=== PATIENT | female | born 1985 | race Caucasian/White ===

== ENCOUNTER 2025-06-03 19:56 | Emergency (ER) | payer MEDICAID, SELFPAY ==
[2025-06-03 20:05] VITALS: BP 115/75; PULSE 78; RESP 18; TEMP 36.6; O2SAT 100; BMI 29.9
--- NOTE | 2025-06-03 20:20 | ECG_ITS ---
[facility] Test Date: 2025-06-03 Pat Name: Katie Lin Department: Room: Gender: Female [employer] Assistant: : [id number] Requested By: Leona Cabrales Order Number: [id number] Gucci MD: JESSICA MILLAN Measurements Intervals [place] Rate: 83 P: 70 [place]: 143 QRS: 55 QRSD: 94 T: 48 QT: 358 QTc: 422 Interpretive Statements SINUS RHYTHM POSSIBLE LEFT ATRIAL ENLARGEMENT [-0.1mV P-WAVE IN V1/V2] INDETERMINATE AXIS POSSIBLE RIGHT VENTRICULAR CONDUCTION DELAY [RSR (QR) IN V1/V2] No previous ECG available for comparison Electronically Signed On 06-04-2025 18:30:52 PLANNING MANAGER by JESSICA MILLAN [email or web address]
--- NOTE | 2025-06-03 20:20 | XRR_ITS ---
PROCEDURE INFORMATION: Exam: XR Chest Exam date and time: 06/03/2025 8:37 PM Age: 40 years old Clinical indication: Pain; Chest pressure; Additional info: Chest pain TECHNIQUE: Imaging protocol: Radiologic exam of the chest. Views: 1 view. COMPARISON: No relevant prior studies available. FINDINGS: Lungs: Unremarkable. No consolidation. Pleural spaces: Unremarkable. No pleural effusion. No pneumothorax. Heart/Mediastinum: Unremarkable. No cardiomegaly. Bones/joints: Unremarkable. XR/XR chest 1V portable [id number] IMPRESSION: No acute findings.
[2025-06-03 20:45] LABS: Hematocrit 36.2 % (36-47); Hemoglobin 11.70 g/dL (11.27-16.99); Mean Corpuscular HGB Conc 32.3 g/dL (30-55); Mean Corpuscular Hemoglobin 28.3 pg (27-33); Mean Corpuscular Volume 87.4 fl (85-98); Nucleated Red Blood Cells % 0 %; Platelet Count 197 10^3/cmm (157-399); Red Blood Count 4.14 10^6/uL (3.85-5.65); White Blood Count 8.42 10^3/uL (3.29-11.43)
[2025-06-03 21:01] LABS: Troponin(5th) Baseline 7 ng/L (0-10)
[2025-06-03 21:03] LABS: Alanine Aminotransferase 6 U/L (0-33); Albumin Level 4.5 g/dL (3.5-5.2); Alkaline Phosphatase 85 U/L (35-105); Anion Gap 14.3 (5-19); Aspartate Amino Transferase 11 U/L (0-32); Blood Urea Nitrogen 10 mg/dL (6-20); Calcium 9.5 mg/dL (8.5-10.5); Carbon Dioxide 27 mmol/L (22-29); Chloride 103 mmol/L (98-107); Creatinine Clr Calc Pharmacy 110.5027; Globulin 2.4 g/dL (1.3-4.6); Glucose 84 mg/dL (65-115); Osmolality Calculated 288 mOsm/kg (285-295); Potassium 4.3 mmol/L (3.5-5.1); Sodium 140 mmol/L (136-145); Total Protein 6.9 g/dL (6.6-8.7)
--- NOTE | 2025-06-03 21:06 | ED_ITS ---
HPI - Chest Pain 2 General: Chief Complaint: Chest Pain Stated Complaint: Chest pain,headache,dizzy Time Seen by Provider: 06/03/25 20:26 History of Present Illness: Patient is a 40-year-old female with a past medical history of atrial fibrillation status post ablation currently not on medications presents with a chief complaint of chest pressure, shortness of breath, dizziness. Patient states she was also simultaneously experiencing ache in her left shoulder but no radiation of pain. She states that when she stood, she felt more dizzy, unclear if symptoms were exertional. She states her symptoms started at rest and were associated with increased stress. Patient states that she is in the middle of buying a home and felt very overwhelmed and stressed out. Her symptoms have now resolved and she only has mild 1 out of 10 pain that is occasional, sharp and stabbing in the left chest. Patient has not had a fever, upper respiratory symptoms, cough, hemoptysis, current shortness of breath, syncope, abdominal pain, nausea, vomiting, lower extremity swelling or edema. Patient does not have a history of CAD, DVT, PE, diabetes, high cholesterol, high blood pressure and is not a smoker and does not use marijuana. She does not have a significant medical history. Patient was concerned and anxious that she was experiencing a heart attack. Patient does not take oral contraceptives and has had a tubal ligation, last menstrual cycle 1 week ago. Of note, she's been experiencing urinary urgency and frequency for the past few days. Related Data Previous Rx's ?Medication ?Instructions ?Recorded nitrofurantoin 100 mg PO BID 5 days #10 cap s 06/03/25 monohydrate/macrocrystals 100 mg capsule (Macrobid) Allergies Allergy/AdvReac Type Severity Reaction Status Date / Time No Known Allergies Allergy Verified 06/03/25 20:09 Physical Exam 2 Narrative: EXAM NARRATIVE: Vital signs were reviewed. Patient is alert and oriented. Patient is breathing comfortably, no increased WOB or accessory muscle use. SpO2 is above 95% on RA. Patient has clear lungs b/l, no rhonchi, wheezing or crackles. No hypotension or tachycardia. Abdomen is soft, nondistended and nontender. Patient is moving all extremities, no deformity or gross injury. No lower extremity edema or asymmetry. Course 2 Vital Signs: Vital signs: Vital Signs Temperature 97.9 F 06/03/25 20:05 Pulse Rate 78 12/11/25 20:05 Respiratory Rate 18 06/03/25 20:05 Blood Pressure 115/75 06/03/25 20:05 Pulse Oximetry 100 06/03/25 20:05 Oxygen Delivery Me thod Room Air 06/03/25 20:05 MDM - Chest Pain Medical Decision Making 40-year-old female without significant medical history presents with a chief complaint of chest pressure, shortness of breath, dizziness in the setting of feeling anxious, overwhelmed and stressed. Differential diagnosis includes, but is not limited to, ACS, myocarditis, pericarditis, pneumonia, viral upper respiratory infection, PE, GERD, other. On initial exam, patient is hemodynamically stable nontoxic appearing. EKG was personally reviewed and interpreted and shows normal sinus rhythm with a heart rate of 83, normal axis, normal intervals, no STEMI. Patient was evaluated CBC, CMP, troponin, D-dimer and UA. Patient has a normal white blood cell count and is not anemic. She does not have any actionable electrolyte abnormalities. She has a normal troponin and a delta and a normal D-dimer. Chest x-ray does not show acute pathology. Patient has a HEART score of 0 and at this time is chest pain-free. Patient does have a urinary tract infection which was treated with Macrobid. Given that she reports palpitations, recommended she see a flotation tender on an outpatient basis and recommended evaluation with continuous nurse monitoring. At this time she is stable for discharge. Patient was counseled on supportive care at home, given return precautions and discharged in stable condition with recommendation for outpatient follow-up with primary care nurse or doctor. Lab Data 06/03/25 20:29 06/03/25 20:29 Radiology Impressions Chest X-Ray 06/03/25 20:20 IMPRESSION: No acute findings. Laboratory Results WBC 8.42 10^3/uL (3.29-11.43) 06/03/25 20: RBC 4.14 10^6/uL (3.85-5.65) 06/03/25 20: Hgb 11.70 g/dL (11.27-16.99) 06/03/25 20: Hct 36.2 % (36-47) 06/03/25 20: MCV 87.4 fl (85-98) 06/03/25 20: MCH 28.3 pg (27-33) 06/03/25 20: MCHC 32.3 g/dL (30-55) 06/03/25 20: RDW 12.6 % (12.1-15.1) 06/03/25 20: Plt Count 197 10^3/cmm (157-399) 06/03/25 20: MPV 9.3 fL (7.4-10.4) 06/03/25 20: Neut % (Auto) 72.4 % 06/03/25 20: Lymph % (Auto) 17.6 % 06/03/25: [place] % (Auto) 8.4 % 06/03/25: Eos % (Auto) 0.7 % 06/03/25: Baso % (Auto) 0.5 % 06/03/25 Neut # (Auto) 6.10 10^3/uL (1.8-7.7) 06/03/25: Lymph # (Auto) 1.5 10^3/uL (0.8-4.8) 06/03/25 20: [place] # (Auto) 0.7 10^3/uL (0.2-0.9) 06/03/25: Eos # (Auto) 0.1 10^3/uL (0.0-0.8) 06/03/25: Baso # (Auto) 0.0 10^3/uL (0.0-0.1) 06/03/25: Nucleated RBC % (auto) 0 % 06/03/25: Nucleated RBCs # 0.0 /100WBC 06/03/25 20: D-Dimer 0.39 ug/mLFEU (0-0.59) 06/03/25 20: Sodium 140 mmol/L (136-145) 06/03/25 20: Potassium 4.3 mmol/L (3.5-5.1) 06/03/25 20: Chloride 103 mmol/L (98-107) 06/03/25 20: Carbon Dioxide 27 mmol/L (22-29) 06/03/25 20: Anion Gap 14.3 (5-19) 12/11/25 20:29 BUN 10 mg/dL (6-20) 06/03/25 20:29 Creatinine 0.7 mg/dL (0.5-0.9) 06/03/25 20: GFR Calculation 91.8 mL/min (90-130) 06/03/25 20:29 Glucose 84 mg/dL (65-115) 06/03/25 20:29 Calculated Osmolality 288 mOsm/kg (285-295) 06/03/25 20:29 Calcium 9.5 mg/dL (8.5-10.5) 06/03/25 20:29 Total Bilirubin 0.7 mg/dL (0.15-1.2) 06/03/25 20:29 AST 11 U/L (0-32) 06/03/25 20: ALT 6 U/L (0-33) 06/03/25 20:29 Alkaline Phosphatase 85 U/L (35-105) 06/03/25 20: Troponin T Baseline 7 ng/L (0-10) 06/03/25 20:29 Total Protein 6.9 g/dL (6.6-8.7) 06/03/25 20:29 Albumin 4.5 g/dL (3.5-5.2) 06/03/25 20: Globulin 2.4 g/dL (1.3-4.6) 06/03/25 20:29 All radiology interpretation(s) finalized by discharge EKG Data EKG 1: Interpretation: EKG shows sinus rhythm with a heart rate of 83, normal axis, normal intervals, no ST segment elevation. No ischemic change. Discharge Plan Discharge Patient Disposition: Home Clinical Impression: Chest pain, non-cardiac, Heart palpitations Urinary tract infection Qualifiers: Urinary tract infection type: acute cystitis Hematuria presence: with hematuria Qualified Code(s): N30.01 - Acute cystitis with hematuria Condition: Stable Prescriptions: New nitrofurantoin monohyd/m-cryst [Macrobid] 100 mg capsule 100 mg PO BID 5 Days Qty: 10 0RF Rx Instructions: must administer with a meal/food Discharge Orders: Discharge ED (Routine); Ordered 06/03/25 Ordered By: Leona Cabrales Patient Instructions: Opioid Safety, Pain Management, Patient Portal & [place] Instructions, Heart Palpitations (DC), Urinary Tract Infection - Women Activity Restrictions/Additional Instructions: Please start taking your antibiotics as prescribed. Continue to monitor your condition closely at home. If your condition worsens or additional concerns arise, please return to the emergency department for reassessment. Please follow-up with your primary care physician within 1 week. Talk to your primary care doctor about evaluation with outpatient continuous nurse monitoring. Talk to your doctor about referral to a flotation tender if you continue to have intermittent chest pain. If your condition worsens or additional concerns arise, please return to the emergency department for reassessment. Print Language: Citizen [place] Coding Level of Care Code ED [employer] for Chg Fwd Heart Score HEART Score Components History: Slightly Suspicous EKG: Normal Age: Less than 45 yrs Risk Factors: No Risk Factors Known Troponin: Baseline Trop <16 ng/L HEART Score RESULT HEART Score: 0
[2025-06-03 21:46] LABS: Glucose Urine UA Negative (Normal); Nitrate Urine Negative (Negative); Specific Gravity, Urine 1.020 (1.005-1.030)
[2025-06-03 21:51] LABS: Add Urine Microscopic? YES
[2025-06-03 22:32] VITALS: BP 103/52; PULSE 75; RESP 18; O2SAT 97
[2025-06-03] MEDS: nitrofurantoin SR (BID) 100 mg Capsule PO (23:38)
== END 2025-06-04 00:46 | disposition home or self-care (01) ==
PROVIDERS: Emergency Provider Emergency Medicine
DX: R07.89 Other chest pain (principal); R00.2 Palpitations; N30.01 Acute cystitis with hematuria
CPT/HCPCS: 36415; 71045; 80053; 81001; 84484; 84702; 85025; 85378; 87077; 87086; 87186; 93005; 99285; J9999

== ENCOUNTER → 2025-06-07 14:21 | Outpatient (BNVA) | payer MEDICAID, SELFPAY | PROVIDERS: PCP Family Medicine; Visit Provider Family Medicine | DX: Z86.79 Personal history of other diseases of the circulatory system (principal) | CPT/HCPCS: 83735; 84443 ==